=== PATIENT | female | born 1975 | race Caucasian/White ===

== ENCOUNTER → 2016-03-23 | Outpatient (CLI) | payer OTHER ==
--- NOTE | 2016-03-23 12:01 | NM ---
Nuclear Medicine Hepatobiliary Scan with Gallbladder Ejection Fraction Clinical History: 40-year-old female nondrinker with recurrent pancreatitis. Assess hepatobiliary fun ction. ICD-10 Diagnostic Code: K85.9. Radiopharmaceutical: 5.2 mCi of IV technetium 99m Choletec. Medical Pharmaceutical: Nephro with 50.7 g of fat in 8 ounces. Comparison Study: Right upper quadrant abdominal sonogram, dated October 13, 2005 (reported as normal) . Findings: Hepatobiliary Scan: Following the uncomplicated intravenous administration of the radiopharmaceutical , there is prompt homogeneous uptake by the liver. The common bile duct is seen by 2 minutes, small b owel is seen by 6 minutes, and the gallbladder is visualized is 17 minutes. There is therefore no stalin dence of acute or chronic cholecystitis, or cystic or common bile duct obstruction. There is no duode nal-gastric reflux observed Gallbladder Ejection Fraction: There is appropriate washout on the time activity curve, with an EF ca lculated at 54% (normal should be greater than 35%). There is therefore no evidence of gallbladder dy skinesia. Impression: Normal studies.
== END ==
LOC: FIMAGING 08:06
PROVIDERS: ATTEND Family Medicine
DX: Z87.19 Personal history of other diseases of the digestive system (principal)
CPT/HCPCS: A9537

== ENCOUNTER → 2016-09-23 | Outpatient (CLI) | payer OTHER | LOC: CIMAGING 13:15 | PROVIDERS: ATTEND Family Medicine | DX: Z12.39 Encounter for other screening for malignant neoplasm of breast (principal); N63 Unspecified lump in breast | CPT/HCPCS: 76641-PO; G0204 ==